=== PATIENT | male | born 1975 | race Caucasian/White ===

== ENCOUNTER 2019-11-19 11:15 | Emergency (ER) | payer OTHER ==
--- NOTE | 2019-11-19 11:41 | ED ---
General Adult HPI - General Chief complaint: Chest Pain Stated complaint: chest pain Time Seen by Provider: 11/19/19 11:26 Source: patient Mode of arrival: ambulatory Limitations: no limitations - History of Present Illness Initial comments: Dictation was produced using [employer] dictation software. please excuse any grammatical, word or spelling errors. This patient was cared for during a federal and state declared state of emergency secondary to Covid 19 Chief Complaint: 44-year-old male presents with chest pain since yesterday. History of Present Illness: Patient's 44-year-old male presents today with chest pain. Patient denies any cardiac history. Patient states the pain is a burning sensation to his anterior chest is worse with breathing and lying flat. He has no shortness of breath. He states that symptoms aren't is apparently on his sides. No cough, chills or night sweats. Denies any recent viral symptoms. No recent travel The ROS documented in this emergency department record has been reviewed and confirmed by me. Those systems with pertinent positive or negative responses have been documented in the HPI. All other systems are other negative and/or noncontributory. PHYSICAL EXAM: General Impression: Alert and oriented x3, not in acute distress HEENT: Normocephalic atraumatic, extra-ocular movements intact, pupils equal and reactive to light bilaterally, mucous membranes moist. Cardiovascular: Heart regular rate and rhythm Chest: Able to complete full sentences, no retractions, no tachypnea Abdomen: abdomen soft, non-tender, non-distended, no organomegaly Musculoskeletal: Pulses present and equal in all extremities, no peripheral edema Motor: no focal deficits noted Neurological: CN II-XII grossly intact, no focal motor or sensory deficits noted Skin: Intact with no visualized rashes Psych: Normal affect and mood ED course: 44 y Old male presents with atypical chest pain. Patient present illness concerning for pericarditis. Vital signs upon arrival are within acceptable limits. Laboratory evaluation obtained. CBC, metabolic panel, troponin negative. Chest x-ray is unremarkable. Point of care bedside ultrasound was performed. Showing no her pericardial effusion. Images were intended on being printed however we do not have refill on ultrasound papers. Nonetheless, ultrasound image was saved on ultrasound device. Results and assessment were discussed with patient. Patient to be maintained on Motrin. Hours for 7-10 days. He is advised to follow-up with cardiology. Return Prevacid discussed. Patient agreeable with disposition plan. EKG interpretation: Ventricular rate 82, normal sinus rhythm, NM interval 172, QRS 86, QTC 436. No NM prolongation, no QTC prolongation, diffuse ST segment elevation with NM depression in leads 2. - Related Data Allergies Allergy/AdvReac Type Severity Reaction Status Date / Time Penicillins Allergy Rash/Hives Verified 11/19/19 11:23 Review of Systems ROS Statement: Those systems with pertinent positive or pertinent negative responses have been documented in the HPI. ROS Other: All systems not noted in ROS Statement are negative. 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 History of Any Multi-Drug Resistant Organisms: None Reported Past Surgical History: No Surgical Hx Reported Past Psychological History: Bipolar Smoking Status: Former smoker Past Alcohol Use History: None Reported Past Drug Use History: None Reported General Exam Limitations: no limitations Course Vital Signs 11/19/19 11/19/19 11:19 12:01 Temperature 98.4 F Pulse Rate 88 92 Respiratory 18 20 Rate Blood Pressure 129/87 126/86 O2 Sat by Pulse 97 96 Oximetry Medical Decision Making - Lab Data Result diagrams: 11/19/19 11:44 11/19/19 11:44 Lab Results 11/19/19 11/19/19 11/19/19 Range/Units 11:44 11:44 11:44 WBC 9.7 (3.8-10.6) k/uL RBC 4.63 (4.30-5.90) m/uL Hgb 15.4 (13.0-17.5) gm/dL Hct 42.8 (39.0-53.0) % MCV 92.5 (80.0-100.0) fL MCH 33.4 (25.0-35.0) pg MCHC 36.1 (31.0-37.0) g/dL RDW 12.8 (11.5-15.5) % Plt Count 223 (150-450) k/uL Neutrophils % 62 % Lymphocytes % 26 % Monocytes % 7 % Eosinophils % 3 % Basophils % 1 % Neutrophils # 6.0 (1.3-7.7) k/uL Lymphocytes # 2.5 (1.0-4.8) k/uL Monocytes # 0.7 (0-1.0) k/uL Eosinophils # 0.3 (0-0.7) k/uL Basophils # 0.1 (0-0.2) k/uL Sodium 137 (137-145) mmol/L Potassium 4.0 (3.5-5.1) mmol/L Chloride 106 (98-107) mmol/L Carbon Dioxide 23 (22-30) mmol/L Anion Gap 8 mmol/L BUN 21 H (9-20) mg/dL Creatinine 0.83 (0.66-1.25) mg/dL Est GFR (CKD-EPI)AfAm >90 (>60 ml/min/1.73 sqM) Est GFR (CKD-EPI)NonAf >90 (>60 ml/min/1.73 sqM) Glucose 109 H (74-99) mg/dL Calcium 8.8 (8.4-10.2) mg/dL Troponin I <0.012 (0.000-0.034) ng/mL Disposition Clinical Impression: Pericarditis Disposition: HOME SELF-CARE Condition: Fair Instructions (If sedation given, give patient instructions): Acute Pericarditis (ED) Additional Instructions: ER instructed to take Motrin 600 mg every 8 hours for 7-10 days. Please follow up with cardiology for further outpatient care regarding your diagnosis. He will need to be on Motrin for approximately 3-4 weeks in total. Cardiology will help QT. Your medications. Seek medical attention immediately with any worsening symptoms, nausea, lightheadedness. Is patient prescribed a controlled substance at d/c from ED?: No Referrals: Bronwyn Pereira MD [STAFF PHYSICIAN] - 1-2 days Time of Disposition: 12:49
[2019-11-19 11:57] LABS: Basophils # (A) 0.1 k/uL (0-0.2); Basophils % (A) 1 %; Eosinophils # (A) 0.3 k/uL (0-0.7); Eosinophils % (A) 3 %; HCT 42.8 % (39.0-53.0); HGB 15.4 gm/dL (13.0-17.5); Lymphocytes # (A) 2.5 k/uL (1.0-4.8); Lymphocytes % (A) 26 %; MCH 33.4 pg (25.0-35.0); MCHC 36.1 g/dL (31.0-37.0); MCV 92.5 fL (80.0-100.0); Mean Platelet Volume 7.8; Monocytes # (A) 0.7 k/uL (0-1.0); Monocytes % (A) 7 %; Neutrophils % (A) 62 %; Platelet Count 223 k/uL (150-450); RBC 4.63 m/uL (4.30-5.90); RDW 12.8 % (11.5-15.5); WBC 9.7 k/uL (3.8-10.6)
[2019-11-19 12:04] VITALS: BP 126/86; RESP 20
[2019-11-19 12:10] LABS: African American GFR (CKD) >90 (>60 ml/min/1.73 sqM); Anion Gap 8 mmol/L; Blood Urea Nitrogen 21 mg/dL (9-20); Calcium 8.8 mg/dL (8.4-10.2); Carbon Dioxide 23 mmol/L (22-30); Chloride 106 mmol/L (98-107); Glucose 109 mg/dL (74-99); Non-African American GFR(CKD) >90 (>60 ml/min/1.73 sqM); Sodium 137 mmol/L (137-145)
--- NOTE | 2019-11-19 12:20 | XR ---
EXAMINATION TYPE: XR chest 2V DATE OF EXAM: 11/19/2019 COMPARISON: NONE HISTORY: Pleurisy and chest pain TECHNIQUE: Frontal and lateral views of the chest are obtained. FINDINGS: There is no focal air space opacity, pleural effusion, or pneumothorax seen. The cardiac silhouette size is within normal limits. The osseous structures are intact. Slightly exaggerated th oracic kyphosis and mild multilevel degenerative change of the spine. IMPRESSION: No acute cardiopulmonary process.
[2019-11-19 13:11] VITALS: PULSE 88; TEMP 98.1
== END 2019-11-19 13:00 | disposition home or self-care (01) ==
LOC: EC 11:15
DX: I31.9 Disease of pericardium, unspecified (principal); Z88.0 Allergy status to penicillin; Z87.891 Personal history of nicotine dependence
CPT/HCPCS: 36415; 71046; 80048; 84484; 85025; 93005; 99285

== ENCOUNTER 2019-12-30 20:04 | Emergency (ER) | payer OTHER ==
[2019-12-30 20:10] VITALS: TEMP 98.8
[2019-12-30] MEDS ORDERED: MORPHINE SULFATE 2 MG/ML SYRINGE IVP STA (20:21)
[2019-12-30] MEDS ORDERED: ONDANSETRON 4 MG/2 ML VIAL IVP STA (20:21)
[2019-12-30] MEDS ORDERED: SODIUM CHLORIDE 0.9% 1,000 ML IV STA (20:21)
[2019-12-30] MEDS ORDERED: ASPIRIN 81 MG PO STA (20:21)
--- NOTE | 2019-12-30 20:30 | ED ---
General Adult HPI - General Chief complaint: Chest Pain Stated complaint: Chest Pain Time Seen by Provider: 12/30/19 20:13 Source: patient, family Mode of arrival: ambulatory Limitations: no limitations - History of Present Illness Initial comments: 44-year-old male patient presents to the emergency department today for evaluation of chest pain, shortness of breath, and palpitations. Patient states a few hours ago he started to have sharp stabbing pains to the left side of his chest that radiates through to his back. Patient states he feels like he is having palpitations on the pain started. Patient states he is short of breath but denies any cough or congestion. He is reporting nausea. Denies abdominal pain. States he does feel lightheaded but denies any dizziness or syncope. States today he feels weak and lethargic. Denies numbness or tingling to his extremities. Patient was in the hospital at the end of October for pericarditis, treated with ibuprofen and resolved. 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 He takes blood pressure medications which was a new medication for him at his visit in October. Patient denies any recent rash, fever, chills, diarrhea, constipation, back pain, numbness, tingling, hematuria, dysuria, urinary urgency, urinary frequency, headache, visual changes, or any other complaints. - Related Data Allergies Allergy/AdvReac Type Severity Reaction Status Date / Time Penicillins Allergy Rash/Hives Verified 11/19/19 11:23 Review of Systems ROS Statement: Those systems with pertinent positive or pertinent negative responses have been documented in the HPI. ROS Other: All systems not noted in ROS Statement are negative. 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 Vital signs upon presentation are temperature 98.8F, pulse 78, respirations 18, blood pressure 153/107, pulse ox 98% on room air.) Eye exam: Present: normal appearance, PERRL, EOMI. Absent: scleral icterus, conjunctival injection, periorbital swelling Respiratory exam: Present: normal lung sounds bilaterally. Absent: respiratory distress, wheezes, rales, rhonchi, stridor Cardiovascular Exam: Present: regular rate, normal rhythm, normal heart sounds. Absent: systolic murmur, diastolic murmur, rubs, gallop, clicks GI/Abdominal exam: Present: soft, tenderness (Left upper quadrant tenderness), normal bowel sounds. Absent: distended, guarding, rebound, rigid Neurological exam: Present: alert, oriented X3, CN II-XII intact Psychiatric exam: Present: normal affect, normal mood Skin exam: Present: warm, dry, intact, normal color. Absent: rash Course Vital Signs 12/30/19 12/30/19 12/30/19 20:05 21:10 22:09 Temperature 98.8 F Pulse Rate 78 70 69 Respiratory 18 16 16 Rate Blood Pressure 153/107 136/101 125/85 O2 Sat by Pulse 98 95 99 Oximetry EKG Findings - EKG Comments: EKG Findings:: EKG obtained at 2017 shows normal sinus rhythm with a ventricular rate of 80, HI interval 172, QRS duration 84, QT 374, QTC 431. No evidence of ST elevation or depression. Medical Decision Making - Medical Decision Making 44-year-old male patient presents to the emergency department today for evaluation of sharp stabbing chest pain to the left chest radiating through to his back. Patient reports palpitations with this. Physical examination is unremarkable. Lungs are clear to auscultation with good air movement. Heart sounds are normal. EKG shows normal sinus rhythm with no ectopy. Cardiac monitoring revealed normal sinus rhythm with no signs of arrhythmia or abnormal beats. Labs reviewed and are unremarkable. Chest x-ray is negative. Upon reevaluation patient is resting comfortably in bed. He does report improvement of symptoms. We did discuss all results. He'll be discharged follow-up with his primary care physician for recheck in 1-2 days. 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 Return parameters were discussed in detail. He verbalizes understanding and agrees with this plan. - Lab Data Result diagrams: 12/30/19 20:21 07/05/20 20:21 Lab Results 12/30/19 12/30/19 12/30/19 Range/Units 20:21 20:21 20:21 WBC 7.3 (3.8-10.6) k/uL RBC 4.43 (4.30-5.90) m/uL Hgb 14.5 (13.0-17.5) gm/dL Hct 41.4 (39.0-53.0) % MCV 93.5 (80.0-100.0) fL MCH 32.8 (25.0-35.0) pg MCHC 35.1 (31.0-37.0) g/dL RDW 12.9 (11.5-15.5) % Plt Count 257 (150-450) k/uL Neutrophils % 50 % Lymphocytes % 39 % Monocytes % 6 % Eosinophils % 3 % Basophils % 1 % Neutrophils # 3.6 (1.3-7.7) k/uL Lymphocytes # 2.8 (1.0-4.8) k/uL Monocytes # 0.4 (0-1.0) k/uL Eosinophils # 0.2 (0-0.7) k/uL Basophils # 0.1 (0-0.2) k/uL PT 9.7 (9.0-12.0) sec INR 0.9 (<1.2) APTT 23.1 (22.0-30.0) sec D-Dimer 0.25 (<0.60) mg/L FEU Sodium 137 (137-145) mmol/L Potassium 4.2 (3.5-5.1) mmol/L Chloride 107 (98-107) mmol/L Carbon Dioxide 24 (22-30) mmol/L Anion Gap 6 mmol/L BUN 24 H (9-20) mg/dL Creatinine 0.99 (0.66-1.25) mg/dL Est GFR (CKD-EPI)AfAm >90 (>60 ml/min/1.73 sqM) Est GFR (CKD-EPI)NonAf >90 (>60 ml/min/1.73 sqM) Glucose 97 (74-99) mg/dL Calcium 9.0 (8.4-10.2) mg/dL Magnesium 2.0 (1.6-2.3) mg/dL Total Bilirubin 0.4 (0.2-1.3) mg/dL AST 25 (17-59) U/L ALT 22 (4-49) U/L Alkaline Phosphatase 84 (38-126) U/L Troponin I (0.000-0.034) ng/mL Total Protein 6.9 (6.3-8.2) g/dL Albumin 3.8 (3.5-5.0) g/dL Lipase 49 (23-300) U/L 12/30/19 Range/Units 20:21 WBC (3.8-10.6) k/uL RBC (4.30-5.90) m/uL Hgb (13.0-17.5) gm/dL Hct (39.0-53.0) % MCV (80.0-100.0) fL MCH (25.0-35.0) pg MCHC (31.0-37.0) g/dL RDW (11.5-15.5) % Plt Count (150-450) k/uL Neutrophils % % Lymphocytes % % Monocytes % % Eosinophils % % Basophils % % Neutrophils # (1.3-7.7) k/uL Lymphocytes # (1.0-4.8) k/uL Monocytes # (0-1.0) k/uL Eosinophils # (0-0.7) k/uL Basophils # (0-0.2) k/uL PT (9.0-12.0) sec INR (<1.2) APTT (22.0-30.0) sec D-Dimer (<0.60) mg/L FEU Sodium (137-145) mmol/L Potassium (3.5-5.1) mmol/L Chloride (98-107) mmol/L Carbon Dioxide (22-30) mmol/L Anion Gap mmol/L BUN (9-20) mg/dL Creatinine (0.66-1.25) mg/dL Est GFR (CKD-EPI)AfAm (>60 ml/min/1.73 sqM) Est GFR (CKD-EPI)NonAf (>60 ml/min/1.73 sqM) Glucose (74-99) mg/dL Calcium (8.4-10.2) mg/dL Magnesium (1.6-2.3) mg/dL Total Bilirubin (0.2-1.3) mg/dL AST (17-59) U/L ALT (4-49) U/L Alkaline Phosphatase (38-126) U/L Troponin I <0.012 (0.000-0.034) ng/mL Total Protein (6.3-8.2) g/dL Albumin (3.5-5.0) g/dL Lipase (23-300) U/L - Radiology Data Radiology results: report reviewed, image reviewed Two-view x-ray of the chest is obtained. Report was reviewed in its entirety. Impression by Dr. Willingham shows normal chest. No change Disposition Clinical Impression: Chest pain, Palpitations Disposition: HOME SELF-CARE Condition: Good Instructions (If sedation given, give patient instructions): Chest Pain (ED), Heart Palpitations (ED) Additional Instructions: Call your wire straightener in the morning and see if you can have your stress test sooner. Follow-up with your primary care physician for recheck in 1-2 days. Return to the emergency department immediately for any new, worsening, or concerning symptoms. Is patient prescribed a controlled substance at d/c from ED?: No Referrals: None,Stated [REFERRING] - 1-2 days Time of Disposition: 21:46
[2019-12-30 20:46] LABS: Basophils # (A) 0.1 k/uL (0-0.2); Basophils % (A) 1 %; Eosinophils # (A) 0.2 k/uL (0-0.7); Eosinophils % (A) 3 %; HCT 41.4 % (39.0-53.0); HGB 14.5 gm/dL (13.0-17.5); Lymphocytes # (A) 2.8 k/uL (1.0-4.8); Lymphocytes % (A) 39 %; MCH 32.8 pg (25.0-35.0); MCHC 35.1 g/dL (31.0-37.0); MCV 93.5 fL (80.0-100.0); Mean Platelet Volume 7.7; Monocytes # (A) 0.4 k/uL (0-1.0); Monocytes % (A) 6 %; Neutrophils # (A) 3.6 k/uL (1.3-7.7); Neutrophils % (A) 50 %; Platelet Count 257 k/uL (150-450); RBC 4.43 m/uL (4.30-5.90); RDW 12.9 % (11.5-15.5); WBC 7.3 k/uL (3.8-10.6)
[2019-12-30 20:52] LABS: ALT 22 U/L (4-49); AST 25 U/L (17-59); African American GFR (CKD) >90 (>60 ml/min/1.73 sqM); Albumin 3.8 g/dL (3.5-5.0); Alkaline Phosphatase 84 U/L (38-126); Anion Gap 6 mmol/L; Blood Urea Nitrogen 24 mg/dL (9-20); Carbon Dioxide 24 mmol/L (22-30); Chloride 107 mmol/L (98-107); Glucose 97 mg/dL (74-99); Non-African American GFR(CKD) >90 (>60 ml/min/1.73 sqM); Potassium 4.2 mmol/L (3.5-5.1); Sodium 137 mmol/L (137-145); Total Bilirubin 0.4 mg/dL (0.2-1.3); Total Protein 6.9 g/dL (6.3-8.2)
--- NOTE | 2019-12-30 20:52 | XR ---
EXAMINATION TYPE: XR chest 2V DATE OF EXAM: 12/30/2019 COMPARISON: 11/19/2019 HISTORY: Chest pain TECHNIQUE: FINDINGS: Heart and mediastinum are normal. Lungs are clear. Diaphragm is normal. Bony thorax appears normal. IMPRESSION: Normal chest. No change.
[2019-12-30 21:04] LABS: D-Dimer 0.25 mg/L FEU (<0.60); INR 0.9 (<1.2); Partial Thromboplastin Time 23.1 sec (22.0-30.0); Prothrombin Time 9.7 sec (9.0-12.0)
[2019-12-30 21:14] VITALS: RESP 16
[2019-12-30 22:10] VITALS: BP 125/85; PULSE 69
== END 2019-12-30 22:11 | disposition home or self-care (01) ==
LOC: EC 20:04
DX: R07.9 Chest pain, unspecified (principal); R00.2 Palpitations; R06.02 Shortness of breath; F17.200 Nicotine dependence, unspecified, uncomplicated; Z88.0 Allergy status to penicillin
CPT/HCPCS: 36415; 93005; 85379; 80053; 83690; 83735; 84484; 85025; 85610; 85730; 71046; 99285; 96374; 96375; 96361 ×2; J2405; J2270

== ENCOUNTER → 2020-01-18 | Outpatient (CLI) | payer OTHER ==
[2020-01-18 19:28] LABS: African American GFR (CKD) 94.8 (60.0-200.0); Albumin 4.2 g/dL (3.80-4.90); Albumin/Globulin Ratio 1.45 (1.60-3.17); Anion Gap 9.6 mmol/L (4.00-12.00); BUN/Creat Ratio 19.09 Ratio (12.00-20.00); Calcium 9.4 mg/dL (8.7-10.3); Carbon Dioxide 25.4 mmol/L (21.6-31.8); Chol/HDL Ratio 4.2; Globulin 2.9 g/dL (1.6-3.3); LDL Cholesterol,Calculated 158.8 mg/dL (0.0-131.0); Non-African American GFR(CKD) 81.8 (60.0-200.0); Potassium 4.3 mmol/L (3.5-5.5); Total Bilirubin 0.7 mg/dL (0.2-1.2); Total Protein 7.1 g/dL (6.2-8.2); VLDL Calculation 30.2 mg/dL (5.00-40.00)
[2020-01-18 20:08] LABS: Hepatitis A Antibody IgM Non-Reactive (Non-Reactive); Hepatitis B Core IgM Non-Reactive (Non-Reactive); Hepatitis B Surface Antigen Non-Reactive (Non-Reactive); Hepatitis C IgG Antibody Non-Reactive (Non-Reactive)
[2020-01-18 20:44] LABS: HIV 2 AB Non-Reactive (Non-Reactive); HIV AB P24 Non-Reactive (Non-Reactive); HIV P24 AG Non-Reactive (Non-Reactive)
== END | disposition home or self-care (01) ==
LOC: LABWHC1 10:49
PROVIDERS: ATTEND Internal Medicine
DX: F15.11 Other stimulant abuse, in remission (principal); E78.5 Hyperlipidemia, unspecified
CPT/HCPCS: 36415; 80053; 80061; 80074; 82550; 87390

== ENCOUNTER 2021-08-19 03:57 | Emergency (ER) | payer OTHER ==
[2021-08-19] MEDS ORDERED: SODIUM CHLORIDE 0.9% 1,000 ML IV ONE (04:36)
[2021-08-19] MEDS ORDERED: MORPHINE SULFATE 4 MG/ML SYRINGE IV STA (04:36)
--- NOTE | 2021-08-19 04:40 | ED ---
Abdominal Pain HPI - General Chief Complaint: Abdominal Pain Stated Complaint: Abdominal pain Time Seen by Provider: 08/19/21 04:29 Source: patient Mode of arrival: wheelchair - History of Present Illness MD Complaint: abdominal pain -: month(s) Location: suprapubic Radiation: other (Groin) Migration to: no migration Severity: severe Quality: cramping, other Consistency: colicky Improves With: nothing Worsens With: nothing - Related Data Previous Rx's Medication Instructions Recorded Doxycycline [Vibramycin] 100 mg PO BID 1 Days #28 capsule 08/19/21 Allergies Allergy/AdvReac Type Severity Reaction Status Date / Time Penicillins Allergy Rash/Hives Verified 08/19/21 04:04 Review of Systems ROS Statement: Those systems with pertinent positive or pertinent negative responses have been documented in the HPI. ROS Other: All systems not noted in ROS Statement are negative. Constitutional: Denies: fever, chills Respiratory: Denies: cough, dyspnea Cardiovascular: Denies: chest pain, palpitations Gastrointestinal: Reports: as per HPI, abdominal pain, nausea. Denies: vomiting, diarrhea, constipation Genitourinary: Reports: testicular pain. 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 Absent: scleral icterus, conjunctival injection Respiratory exam: Present: normal lung sounds bilaterally. Absent: respiratory distress, wheezes, rales, rhonchi, stridor Cardiovascular Exam: Present: regular rate, normal rhythm, normal heart sounds. Absent: systolic murmur, diastolic murmur, rubs, gallop GI/Abdominal exam: Present: soft. Absent: distended, tenderness, guarding, rebound, rigid, mass, pulsatile mass, hernia exam: Present: testicular tenderness Extremities exam: Present: normal inspection, normal capillary refill. Absent: pedal edema, calf tenderness Back exam: Present: full ROM, CVA tenderness (L). Absent: vertebral tenderness Neurological exam: Present: alert Skin exam: Present: warm, dry, intact, normal color. Absent: rash Course Vital Signs 08/19/21 08/19/21 04:00 08:27 Temperature 97.8 F 98.0 F Pulse Rate 92 80 Respiratory 18 16 Rate Blood Pressure 188/99 143/93 O2 Sat by Pulse 98 100 Oximetry Medical Decision Making - Lab Data Result diagrams: 08/19/21 04:35 08/19/21 04:35 Lab Results 08/19/21 08/19/21 08/19/21 Range/Units 04:35 04:35 05:53 WBC 9.2 (3.8-10.6) k/uL RBC 4.95 (4.30-5.90) m/uL Hgb 15.3 (13.0-17.5) gm/dL Hct 44.6 (39.0-53.0) % MCV 90.0 (80.0-100.0) fL MCH 31.0 (25.0-35.0) pg MCHC 34.4 (31.0-37.0) g/dL RDW 12.8 (11.5-15.5) % Plt Count 388 (150-450) k/uL MPV 7.7 Neutrophils % 75 % Lymphocytes % 19 % Monocytes % 4 % Eosinophils % 1 % Basophils % 1 % Neutrophils # 6.9 (1.3-7.7) k/uL Lymphocytes # 1.7 (1.0-4.8) k/uL Monocytes # 0.3 (0-1.0) k/uL Eosinophils # 0.1 (0-0.7) k/uL Basophils # 0.1 (0-0.2) k/uL Sodium 133 L (137-145) mmol/L Potassium 4.1 (3.5-5.1) mmol/L Chloride 103 (98-107) mmol/L Carbon Dioxide 26 (22-30) mmol/L Anion Gap 4 mmol/L BUN 12 (9-20) mg/dL Creatinine 0.76 (0.66-1.25) mg/dL Est GFR (CKD-EPI)AfAm >90 (>60 ml/min/1.73 sqM) Est GFR (CKD-EPI)NonAf >90 (>60 ml/min/1.73 sqM) Glucose 128 H (74-99) mg/dL Calcium 9.5 (8.4-10.2) mg/dL Total Bilirubin 0.9 (0.2-1.3) mg/dL AST 42 (17-59) U/L ALT 58 H (4-49) U/L Alkaline Phosphatase 128 H (38-126) U/L C-Reactive Protein <0.5 (<1.0) mg/dL Total Protein 8.1 (6.3-8.2) g/dL Albumin 4.2 (3.5-5.0) g/dL Amylase 48 (30-110) U/L Lipase 57 (23-300) U/L Urine Color Yellow Urine Appearance Cloudy (Clear) Urine pH 8.0 (5.0-8.0) Ur Specific [place] 1.020 (1.001-1.035) Urine Protein Trace H (Negative) Urine Glucose (UA) Negative (Negative) Urine Ketones Negative (Negative) Urine Blood Negative (Negative) Urine Nitrite Negative (Negative) Urine Bilirubin Negative (Negative) Urine Urobilinogen 3.0 (<2.0) mg/dL Ur Leukocyte Esterase Negative (Negative) Urine RBC 1 (0-5) /hpf Urine WBC <1 (0-5) /hpf Amorphous Sediment Rare H (None) /hpf Urine Bacteria Rare H (None) /hpf Urine Mucus Rare H (None) /hpf Disposition Clinical Impression: Epididymitis Disposition: HOME SELF-CARE Condition: Good Instructions (If sedation given, give patient instructions): Epididymitis (ED) Prescriptions: Doxycycline [Vibramycin] 100 mg PO BID 1 Days #28 capsule Is patient prescribed a controlled substance at d/c from ED?: No Referrals: None,Stated [Primary Care Provider] - 1-2 days
[2021-08-19 05:09] LABS: Basophils # (A) 0.1 k/uL (0-0.2); Basophils % (A) 1 %; Eosinophils # (A) 0.1 k/uL (0-0.7); Eosinophils % (A) 1 %; HCT 44.6 % (39.0-53.0); HGB 15.3 gm/dL (13.0-17.5); Lymphocytes # (A) 1.7 k/uL (1.0-4.8); Lymphocytes % (A) 19 %; MCHC 34.4 g/dL (31.0-37.0); Mean Platelet Volume 7.7; Monocytes # (A) 0.3 k/uL (0-1.0); Monocytes % (A) 4 %; Neutrophils # (A) 6.9 k/uL (1.3-7.7); Neutrophils % (A) 75 %; Platelet Count 388 k/uL (150-450); RBC 4.95 m/uL (4.30-5.90); RDW 12.8 % (11.5-15.5); WBC 9.2 k/uL (3.8-10.6)
[2021-08-19 05:39] LABS: ALT 58 U/L (4-49); AST 42 U/L (17-59); African American GFR (CKD) >90 (>60 ml/min/1.73 sqM); Albumin 4.2 g/dL (3.5-5.0); Alkaline Phosphatase 128 U/L (38-126); Amylase 48 U/L (30-110); Anion Gap 4 mmol/L; Blood Urea Nitrogen 12 mg/dL (9-20); C Reactive Protein <0.5 mg/dL (<1.0); Calcium 9.5 mg/dL (8.4-10.2); Carbon Dioxide 26 mmol/L (22-30); Glucose 128 mg/dL (74-99); Lipase 57 U/L (23-300); Non-African American GFR(CKD) >90 (>60 ml/min/1.73 sqM); Total Bilirubin 0.9 mg/dL (0.2-1.3); Total Protein 8.1 g/dL (6.3-8.2)
--- NOTE | 2021-08-19 05:58 | CT ---
EXAMINATION TYPE: CT abdomen pelvis wo con DATE OF EXAM: 08/19/2021 COMPARISON: None HISTORY: abd pain CT DLP: 670.8 mGycm Automated exposure control for dose reduction was used. Images obtained from the diaphragm to the floor the pelvis with no contrast. The lung bases are clear. There is no pleural effusion. Heart size is normal. There is no pericardial effusion. Liver spleen and stomach appear intact. Bile ducts are not dilated. There is a single 1.7 cm calcifie d gallstone. Gallbladder has normal size. There is no adrenal mass. There is some minimal fat strandi ng around the pancreatic head. Duodenum appears normal. There is normal renal size and contour. There is no hydronephrosis. Ureters are not dilated. Appendix is posterior and appears normal. Bladder distends smoothly. There is mild fat stranding in the left and right inguinal region. No hernia sac seen. There is bilateral thickening of the spermatic cord. The lumbar spine shows no evidence of compression fracture. There is L5 left-sided spondylolysis. The re is no spondylolisthesis. The bony pelvis is intact. The hip joints are intact. There is no evidenc e of a bowel obstruction. There is no ascites or free air. IMPRESSION: Cholelithiasis. Minimal fat stranding around the pancreatic head could relate to mild pancreatitis. Bilateral inguinal fat stranding could be some scrotal inflammatory changes.
[2021-08-19 07:09] LABS: Amorphous Sediment,Urine Rare /hpf; Appearance,Urine Cloudy (Clear); Bacteria,Urine Rare /hpf; Bilirubin,Urine Negative (Negative); Blood,Urine Negative (Negative); Color,Urine Yellow; Glucose,Urine (UA) Negative (Negative); Ketones,Urine Negative (Negative); Leukocyte Esterase,Urine Negative (Negative); Mucus,Urine Rare /hpf; Nitrite,Urine Negative (Negative); Protein,Urine Trace (Negative); RBC,Urine 1 /hpf (0-5); WBC,Urine <1 /hpf (0-5)
--- NOTE | 2021-08-19 08:13 | US ---
EXAMINATION TYPE: US scrotum with doppler. Grayscale and color Doppler Duplex imaging performed of t taina scrotum. DATE OF EXAM: 08/19/2021 COMPARISON: CT CLINICAL HISTORY: R testicle pain. Patient states he has pain in both testicles, worse on the right. EXAM MEASUREMENTS: TESTICLES: Right Testicle: 3.4 x 2.5 x 2.4 cm Left Testicle: 3.2 x 2.9 x 2.4 cm Slight heterogeneity of superior left testicle appears to be vessels. EPIDIDYMIS HEAD: Right Epididymis: 1.4 x 0.9 x 1.2 cm Left Epididymis: 2.1 x 0.9 x 0.8 cm Heterogeneous areas seen lateral to bilateral testicles, limited visibility, difficult to image. Po ssible heterogeneous epididymis tail versus other. Images at end of study with arrows. Doppler performed to assess for testicular vascularity; good bilateral color flow and waveforms are s een. Presence of hydroceles: Yes, right: 2.2 x 2.7 x 1.2 cm. left: 2.0 x 1.7 x 0.6 cm. Presence of varicoceles: No IMPRESSION: 1. Bilateral hydroceles. 2. No torsion. 3. Other is some mild prominence of soft tissue adjacent to the testicles. This may be the epididymis , consider bilateral epididymitis. Follow-up can be performed as clinically indicated.
[2021-08-19 08:28] VITALS: BP 143/93; PULSE 80; RESP 16; TEMP 98
[2021-08-19] MEDS ORDERED: DOXYCYCLINE 100 MG CAP PO STA (08:35)
[2021-08-19 12:12] LABS: Potassium 4.1 mmol/L (3.5-5.1); Sodium 133 mmol/L (137-145)
[2021-08-19 12:13] LABS: Chloride 103 mmol/L (98-107)
== END 2021-08-19 09:30 | disposition home or self-care (01) ==
LOC: EC 03:57
DX: N45.1 Epididymitis (principal); I10 Essential (primary) hypertension; F31.9 Bipolar disorder, unspecified; F17.200 Nicotine dependence, unspecified, uncomplicated; F15.90 Other stimulant use, unspecified, uncomplicated; Z88.0 Allergy status to penicillin
CPT/HCPCS: 51798; 36415; 80053; 82150; 83690; 85025; 86140; 81001; 93975; 76870; 74176; 99284; 96365; 96375; 96361 ×4; J2270; J0696

== ENCOUNTER 2021-08-21 17:32 | Emergency (ER) | payer OTHER ==
[2021-08-21 17:48] VITALS: TEMP 98.1
[2021-08-21] MEDS ORDERED: KETOROLAC 15 MG/ML 1 ML VIAL IVP STA (19:05)
[2021-08-21] MEDS ORDERED: SODIUM CHLORIDE 0.9% 1,000 ML IV STA (19:06)
--- NOTE | 2021-08-21 19:12 | ED ---
Abdominal Pain HPI - General Chief Complaint: Abdominal Pain Stated Complaint: Abd pain Time Seen by Provider: 08/21/21 19:00 Source: patient, RN notes reviewed, old records reviewed Mode of arrival: ambulatory Limitations: no limitations - History of Present Illness Initial Comments: 46-year-old male presents to the emergency room with diffuse abdominal pain for years. Patient states that he was seen here couple of days ago for the same pain and had CAT scan and ultrasound and labs done. He was diagnosed with epididymitis. He has not started taking the antibiotics yet he has not been able to pick them up. He continues to have this abdominal bloating with low back pain. He denies any fevers nausea or vomiting. He states he has not been eating very much and has not been able to have a bowel movement and feels constipated and bloated. MD Complaint: abdominal pain -: year(s) Location: diffuse Migration to: other (testicles) Severity scale (1-10): 10 Quality: fullness, other (feels bloated) Consistency: constant Improves With: nothing - Related Data Home Medications Medication Instructions Recorded Confirmed No Known Home Medications 08/21/21 08/21/21 Allergies Allergy/AdvReac Type Severity Reaction Status Date / Time Penicillins Allergy Rash/Hives Verified 08/21/21 19:19 Review of Systems ROS Statement: Those systems with pertinent positive or pertinent negative responses have been documented in the HPI. ROS Other: All systems not noted in ROS Statement are negative. 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 Absent: distended Back exam: Present: normal inspection, full ROM. Absent: CVA tenderness (R), CVA tenderness (L), rash noted Neurological exam: Present: alert, oriented X3 Psychiatric exam: Present: other (tearful) Skin exam: Present: warm, dry, normal color. Absent: rash, cyanosis, diaphore tic, erythema Course Vital Signs 08/21/21 08/21/21 17:47 22:55 Temperature 98.1 F Pulse Rate 86 96 Respiratory 18 16 Rate Blood Pressure 182/96 161/90 O2 Sat by Pulse 98 97 Oximetry - Reevaluation(s) Reevaluation #1: 08/21/21 21:27 Upon reassessment patient's abdomen is soft and nontender. Patient states that he has 0 pain at this time after IV fluids and Toradol. He states that his te sticles still feel tender. Case discussed with Dr. Felix. U/S ordered. Time: 21:27 Medical Decision Making - Medical Decision Making Patient's white blood cell count is 12.4 slightly elevated from his previous visit. Urinalysis shows no signs of infection. Ultrasound shows no testicular torsion or mass there is mild bilateral hydroceles consistent with ultrasound 2 days ago. Patient was directed to get his prescription filled for his treatment of his epididymitis. Did discuss with him that the pain will not resolve if he is not taking the treatment that was prescribed. He is agreeable to being discharged home and fulfilling his prescription. He is given a dose of antibiotics in the emergency room. His abdomen is soft and nontender at discharge. Vital signs are stable. Case discussed with Dr. Felix - Lab Data Result diagrams: 08/21/21 19:53 08/21/21 19:53 Lab Results 08/21/21 08/21/21 08/21/21 Range/Units 19:53 19:53 19:53 WBC 12.4 H (3.8-10.6) k/uL RBC 5.69 (4.30-5.90) m/uL Hgb 17.9 H (13.0-17.5) gm/dL Hct 51.4 (39.0-53.0) % MCV 90.3 (80.0-100.0) fL MCH 31.5 (25.0-35.0) pg MCHC 34.9 (31.0-37.0) g/dL RDW 12.6 (11.5-15.5) % Plt Count 369 (150-450) k/uL MPV 7.6 Neutrophils % 79 % Lymphocytes % 17 % Monocytes % 3 % Eosinophils % 1 % Basophils % 0 % Neutrophils # 9.7 H (1.3-7.7) k/uL Lymphocytes # 2.1 (1.0-4.8) k/uL Monocytes # 0.3 (0-1.0) k/uL Eosinophils # 0.1 (0-0.7) k/uL Basophils # 0.1 (0-0.2) k/uL Sodium 133 L (137-145) mmol/L Potassium 5.4 H (3.5-5.1) mmol/L Chloride 100 (98-107) mmol/L Carbon Dioxide 24 (22-30) mmol/L Anion Gap 9 mmol/L BUN 13 (9-20) mg/dL Creatinine 0.75 (0.66-1.25) mg/dL Est GFR (CKD-EPI)AfAm >90 (>60 ml/min/1.73 sqM) Est GFR (CKD-EPI)NonAf >90 (>60 ml/min/1.73 sqM) Glucose 102 H (74-99) mg/dL Plasma Lactic Acid José Miguel 1.9 (0.7-2.0) mmol/L Calcium 9.8 (8.4-10.2) mg/dL Total Bilirubin 1.4 H (0.2-1.3) mg/dL AST 74 H (17-59) U/L ALT 72 H (4-49) U/L Alkaline Phosphatase 148 H (38-126) U/L Total Protein 9.1 H (6.3-8.2) g/dL Albumin 4.8 (3.5-5.0) g/dL Amylase 44 (30-110) U/L Lipase 30 (23-300) U/L Urine Color Urine Appearance (Clear) Urine pH (5.0-8.0) Ur Specific [place] (1.001-1.035) Urine Protein (Negative) Urine Glucose (UA) (Negative) Urine Ketones (Negative) Urine Blood (Negative) Urine Nitrite (Negative) Urine Bilirubin (Negative) Urine Urobilinogen (<2.0) mg/dL Ur Leukocyte Esterase (Negative) 08/21/21 Range/Units 22:26 WBC (3.8-10.6) k/uL RBC (4.30-5.90) m/uL Hgb (13.0-17.5) gm/dL Hct (39.0-53.0) % MCV (80.0-100.0) fL MCH (25.0-35.0) pg MCHC (31.0-37.0) g/dL RDW (11.5-15.5) % Plt Count (150-450) k/uL MPV Neutrophils % % Lymphocytes % % Monocytes % % Eosinophils % % Basophils % % Neutrophils # (1.3-7.7) k/uL Lymphocytes # (1.0-4.8) k/uL Monocytes # (0-1.0) k/uL Eosinophils # (0-0.7) k/uL Basophils # (0-0.2) k/uL Sodium (137-145) mmol/L Potassium (3.5-5.1) mmol/L Chloride (98-107) mmol/L Carbon Dioxide (22-30) mmol/L Anion Gap mmol/L BUN (9-20) mg/dL Creatinine (0.66-1.25) mg/dL Est GFR (CKD-EPI)AfAm (>60 ml/min/1.73 sqM) Est GFR (CKD-EPI)NonAf (>60 ml/min/1.73 sqM) Glucose (74-99) mg/dL Plasma Lactic Acid José Miguel (0.7-2.0) mmol/L Calcium (8.4-10.2) mg/dL Total Bilirubin (0.2-1.3) mg/dL AST (17-59) U/L ALT (4-49) U/L Alkaline Phosphatase (38-126) U/L Total Protein (6.3-8.2) g/dL Albumin (3.5-5.0) g/dL Amylase (30-110) U/L Lipase (23-300) U/L Urine Color Light Yellow Urine Appearance Clear (Clear) Urine pH 7.0 (5.0-8.0) Ur Specific [place] 1.006 (1.001-1.035) Urine Protein Negative (Negative) Urine Glucose (UA) Negative (Negative) Urine Ketones 1+ H (Negative) Urine Blood Negative (Negative) Urine Nitrite Negative (Negative) Urine Bilirubin Negative (Negative) Urine Urobilinogen <2.0 (<2.0) mg/dL Ur Leukocyte Esterase Negative (Negative) Disposition Clinical Impression: Epididymitis Disposition: HOME SELF-CARE Condition: Good Instructions (If sedation given, give patient instructions): Epididymitis (ED) Additional Instructions: Please get the prescription for the doxycycline that was prescribed at your previous visit. Follow-up with the primary care doctor next week. Tylenol and/or Motrin as needed for pain. Return to the emergency room with any new or concerning symptoms. Is patient prescribed a controlled substance at d/c from ED?: No Referrals: None,Stated [REFERRING] - 1-2 days Time of Disposition: 22:43
[2021-08-21 19:59] LABS: Basophils # (A) 0.1 k/uL (0-0.2); Basophils % (A) 0 %; Eosinophils # (A) 0.1 k/uL (0-0.7); Eosinophils % (A) 1 %; HCT 51.4 % (39.0-53.0); HGB 17.9 gm/dL (13.0-17.5); Lymphocytes # (A) 2.1 k/uL (1.0-4.8); Lymphocytes % (A) 17 %; MCH 31.5 pg (25.0-35.0); MCHC 34.9 g/dL (31.0-37.0); MCV 90.3 fL (80.0-100.0); Mean Platelet Volume 7.6; Monocytes # (A) 0.3 k/uL (0-1.0); Monocytes % (A) 3 %; Neutrophils # (A) 9.7 k/uL (1.3-7.7); Neutrophils % (A) 79 %; Platelet Count 369 k/uL (150-450); RBC 5.69 m/uL (4.30-5.90); RDW 12.6 % (11.5-15.5); WBC 12.4 k/uL (3.8-10.6)
[2021-08-21 20:07] LABS: ALT 72 U/L (4-49); AST 74 U/L (17-59); African American GFR (CKD) >90 (>60 ml/min/1.73 sqM); Albumin 4.8 g/dL (3.5-5.0); Alkaline Phosphatase 148 U/L (38-126); Amylase 44 U/L (30-110); Anion Gap 9 mmol/L; Blood Urea Nitrogen 13 mg/dL (9-20); Calcium 9.8 mg/dL (8.4-10.2); Carbon Dioxide 24 mmol/L (22-30); Chloride 100 mmol/L (98-107); Glucose 102 mg/dL (74-99); Lipase 30 U/L (23-300); Non-African American GFR(CKD) >90 (>60 ml/min/1.73 sqM); Sodium 133 mmol/L (137-145); Total Bilirubin 1.4 mg/dL (0.2-1.3); Total Protein 9.1 g/dL (6.3-8.2)
[2021-08-21 20:25] LABS: Potassium 5.4 mmol/L (3.5-5.1)
[2021-08-21] MEDS ORDERED: DOXYCYCLINE 100 MG CAP PO STA (21:35)
[2021-08-21] MEDS ORDERED: SODIUM CHLORIDE 0.9% 500 ML 500 ML IV ONE (21:55)
--- NOTE | 2021-08-21 22:35 | US ---
EXAMINATION TYPE: US scrotum with doppler. Grayscale and color Doppler Duplex imaging performed of yeyo he scrotum. DATE OF EXAM: 08/21/2021 COMPARISON: 2 days prior CLINICAL HISTORY: continued pain. Patient diagnosed with epididymitis, had ultrasound 2 days prior, he hasn't started his antibiotic ye t. EXAM MEASUREMENTS: TESTICLES: Right Testicle: 3.6 x 2.0 x 2.9 cm Left Testicle: 3.3 x 2.7 x 3.0 cm EPIDIDYMIS HEAD: Right Epididymis: 1.0 cm, cyst measuring 0.5cm Left Epididymis: 1.3 cm Doppler performed to assess for testicular vascularity; good bilateral color flow and waveforms are s een. There is no evidence of testicular torsion. Presence of hydroceles: Right: 3.3 x 1.3 x 3.0cm Left: 1.9 x 1.1 x 1.8 Presence of varicoceles: no Increased flow to right epididymis. IMPRESSION: No testicular torsion or mass. There is mild bilateral hydroceles. There is relative hype remia of the right epididymis that could relate to epididymitis.
[2021-08-21 22:37] LABS: Appearance,Urine Clear (Clear); Bilirubin,Urine Negative (Negative); Blood,Urine Negative (Negative); Color,Urine Light Yellow; Glucose,Urine (UA) Negative (Negative); Ketones,Urine 1+ (Negative); Leukocyte Esterase,Urine Negative (Negative); Nitrite,Urine Negative (Negative); Protein,Urine Negative (Negative); Specific Gravity,Urine 1.006 (1.001-1.035); Urobilinogen,Urine <2.0 mg/dL (<2.0)
[2021-08-21 22:56] VITALS: BP 161/90; PULSE 96; RESP 16
== END 2021-08-21 23:00 | disposition home or self-care (01) ==
LOC: EC 17:32
DX: N45.1 Epididymitis (principal); F17.200 Nicotine dependence, unspecified, uncomplicated; I10 Essential (primary) hypertension; Z88.0 Allergy status to penicillin
CPT/HCPCS: 36415; 80053; 82150; 83605; 83690; 85025; 81003; 93975; 76870; 99284; 96374; 96361; J1885